=== PATIENT | male | born 1975 | race Caucasian/White ===

== ENCOUNTER → 2019-10-15 | Outpatient (CLI) | payer BC | LOC: COL.RAD 13:45 | DX: M79.671 Pain in right foot (principal) | CPT/HCPCS: J3301; Q9967 ==

== ENCOUNTER → 2020-01-11 | Outpatient (CLI) | payer BC | LOC: COL.RAD 10:28 | DX: M79.671 Pain in right foot (principal) | CPT/HCPCS: J3301; Q9967 ==